=== PATIENT | female | born 2000 | race Caucasian/White ===

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

== ENCOUNTER 2018-03-14 20:11 | Emergency (ER) | payer MEDICAID ==
[2018-03-14 20:13] VITALS: BP 113/55
--- NOTE | 2018-03-14 20:34 | EDM.PDOC ---
ED HPI GENERAL MEDICAL PROBLEM - General Chief Complaint: Skin Complaint Stated Complaint: RASH Time Seen by Provider: 03/14/18 20:26 Source of Information: Reports: Patient History Limitations: Reports: No Limitations - History of Present Illness INITIAL COMMENTS - FREE TEXT/NARRATIVE: This patient is a 17 year old female that presents to the ER. Patient reports that she thinks about 2 days ago started having rash to bilateral AC areas. Patient reports that there are itches. She reports being 6 weeks . She reports she wore two shirts she bought from store without washing them. She also reports starting vitamins 4 days ago. She denies forbes, dizziness, n , v, d, f, airway closing, airway tightness, chest tightness, cp, wheezing, abd pain, acid reflux. Talking in full and complete sentences without difficulty. Stable. Onset Date: 03/12/18 Duration: Day(s): (2) Location: Reports: Upper Extremity, Left, Upper Extremity, Right Front/Back Body Image: 1 - rash 2 - rash Severity: Mild Improves with: Reports: None Worsens with: Reports: None Associated Symptoms: Reports: Rash. Denies: Confusion, Chest Pain, Cough, cough w sputum, Diaphoresis, Fever/Chills, Headaches, Loss of Appetite, Malaise , Nausea/Vomiting, Seizure, Shortness of Breath, Syncope, Weakness - Related Data Allergies Allergy/AdvReac Type Severity Reaction Status Date / Time peanut Allergy Hives Verified 03/14/18 20:13 Home Meds: Home Meds Albuterol [Proventil HFA] 2 puff INH Q4H PRN 09/01/15 [History] Acyclovir 200 mg PO BID 09/30/17 [History] Omeprazole [First-Omeprazole] 1 tab PO DAILY 12/13/17 [History] PQL264/Iron Fumarate/FA/DSS [ 19 Tablet] 1 tab PO DAILY 03/14/18 [ History] Past Medical History HEENT History: Reports: Impaired Vision Respiratory History: Reports: Asthma Other Respiratory History: [employer] History: Reports: Musculoskeletal History: Reports: Other (See Below) Other Musculoskeletal History: achillies tendonitis Psychiatric History: Reports: Depression, Suicidal Ideation - Past Surgical History Neurological Surgical History: Reports: Other (See Below) Other Neurological Surgeries/Procedures: Brain surgeryX2 Social & Family History - Family History Family Medical History: Noncontributory - Tobacco Use Smoking Status *Q: Never Smoker - Caffeine Use Caffeine Use: Reports: None - Recreational Drug Use Recreational Drug Use: No ED ROS GENERAL - Review of Systems Review Of Systems: See Below Constitutional: Reports: No Symptoms HEENT: Reports: No Symptoms Respiratory: Reports: No Symptoms Cardiovascular: Reports: No Symptoms Endocrine: Reports: No Symptoms GI/Abdominal: Reports: No Symptoms : Reports: No Symptoms Musculoskeletal: Reports: No Symptoms Skin: Reports: Rash (bilateral AC arms) Neurological: Reports: No Symptoms Psychiatric: Reports: No Symptoms Hematologic/Lymphatic: Reports: No Symptoms Immunologic: Reports: No Symptoms ED EXAM, SKIN/RASH Exam: See Below Exam Limited By: No Limitations General Appearance: Alert, WD/WN, No Apparent Distress Eye Exam: Bilateral Eye: Normal Inspection, PERRL Ears: Normal External Exam, Normal Canal, Hearing Grossly Normal, Normal TMs Nose: Normal Inspection, Normal Mucosa, No Blood Throat/Mouth: Normal Inspection, Normal Lips, Normal Teeth, Normal Gums, Normal Oropharynx, Normal Voice, No Airway Compromise Head: Atraumatic, Normocephalic Neck: Normal Inspection, Supple, Non-Tender, Full Range of Motion Respiratory/Chest: No Respiratory Distress, Lungs Clear, Normal Breath Sounds, No Accessory Muscle Use Cardiovascular: Normal Peripheral Pulses, Regular Rate, Rhythm, No Edema, No Gallop, No JVD, No Murmur, No Rub Peripheral Pulses: 2+: Radial (L), Radial (R), Posterior Tibial (L), Posterior Tibial (R) GI/Abdominal: Normal Bowel Sounds, Soft, Non-Tender, No Organomegaly, No Distention, No Abnormal Bruit, No Mass, Pelvis Stable Back Exam: Normal Inspection, Full Range of Motion Extremities: Normal Inspection, Normal Range of Motion, Non-Tender, No Pedal Edema, Normal Capillary Refill Neurological: Alert, Oriented, Normal Cognition, Normal Gait, No Motor/Sensory Deficits Psychiatric: Normal Affect, Normal Mood Skin: Warm, Dry, Intact, Normal Color, Rash (bilateral ACs. ) Location, Skin: Upper Extremity, Right, Upper Extremity, Left Characteristics: Erythematous Lymphatic: No Adenopathy Course - Vital Signs Last Recorded V/S: Last Vital Signs Temp 98 F 03/14/18 20:11 Pulse 83 03/14/18 20:11 Resp 18 03/14/18 20:11 BP 113/55 L 03/14/18 20:11 Pulse Ox 98 03/14/18 20:11 Departure - Departure Time of Disposition: 20:32 Disposition: Home, Self-Care 01 Condition: Good Clinical Impression: Contact dermatitis Qualifiers: Contact dermatitis type: unspecified Contact dermatitis trigger: unspecified trigger Qualified Code(s): L25.9 - Unspecified contact dermatitis, unspecified cause - Discharge Information *PRESCRIPTION DRUG MONITORING PROGRAM REVIEWED*: No *COPY OF PRESCRIPTION DRUG MONITORING REPORT IN PATIENT STEPHANY: No Instructions: Contact Dermatitis, [id number] Referrals: Raul Turner PA-C [Primary Care Provider] - Forms: ED Department Discharge Additional Instructions: Followup with your primary care provider Return to the ER for worsening of condition or any emergent concerns May take Benadryl over the counter every 6 hours as needed for rash and itching - Assessment/Plan Plan: PLEASE SEE RN NOTE FOR PFSH.
== END 2018-03-14 20:40 | disposition home or self-care (01) ==
LOC: CC.ED 20:11
DX: O99.711 Diseases of the skin and subcutaneous tissue complicating pregnancy, first trimester (principal); L25.9 Unspecified contact dermatitis, unspecified cause; Z3A.01 Less than 8 weeks gestation of pregnancy; Z79.899 Other long term (current) drug therapy; Z91.010 Allergy to peanuts
CPT/HCPCS: 99283